=== PATIENT | female | born 1955 | race Caucasian/White ===

== ENCOUNTER → 2019-03-31 13:38 | Outpatient (CLI) | payer BC, SELFPAY ==
--- NOTE | ~2019-03-31 | XR_ITS ---
XR hand BI arthritis min 3V 03/31/2019 14:06 Indication: Arthritis of the hands Procedure: 4 views of each hand Comparison: No prior studies for comparison. Findings: There is mild bilateral osteoarthritis of the hands involving the first MCP and IP joints a s well as the interphalangeal joints. No fracture or traumatic malalignment. No focal soft tissue abn ormality. No radiopaque foreign bodies. Impression: 1: Mild polyarticular osteoarthritis. Reviewed, dictated and finalized at location A. 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
== END ==
PROVIDERS: PCP Nurse Practitioner; Visit Provider Nurse Practitioner
DX: M19.041 Primary osteoarthritis, right hand (principal); M19.042 Primary osteoarthritis, left hand
CPT/HCPCS: 73130

== ENCOUNTER 2019-06-09 10:00 | Outpatient (RCR) | payer BC, SELFPAY ==
--- NOTE | 2019-04-07 12:01 | OTOPEVAL ---
OCCUPATIONAL THERAPY INITIAL EVALUATION REPORT 04/07/2019 Thank you for referring this patient to [facility]. Skilled OT is indicated 2x/week for 4 weeks. Please review, sign, date and return this plan of care [place]. I agree with and certify that the following plan of care is medically necessary. Referring Physician Date Attending Provider: Nubia Ledesma NP *OT Outpatient Evaluation Start: 04/07/19 10:15 Therapy Assessment Status Assessment Status Evaluation Outpatient Past Medical History Musculoskeletal History Hx Arthritis Yes Hx Osteoporosis Yes Evaluation Information Problem Diagnosis Bilateral hand pain Additional Evaluation Detail Patient's symptoms are consistent with (L) ring finger and (R) thumb trigger fingers. Subjective Information Patient reports pain with (R) Query Text:As Reported By Patient/ thumb use during pinching Family tasks such as pulling up pants and starting her car. (L) ring finger pain with gross gripping tasks. Prior Level of Function Activity Level (Last 3 Months) Occupation Works at the [employer] Activity of Daily Living Ability Independent Cooking Yes Cleaning Yes Laundry Yes Shopping Yes Driving Yes Comments Additional Prior Level of Function Patient has been utilizing Comments compensatory techniques for ADLs and work tasks due to the pain. Pain Assessment Timing of Pain Assessment Timing of Pain Assessment Assessment Pain Scale Pain Scale Used Numeric (1 - 10) Self Report Pain Assessment Left Hand(s) Reported Pain Level 4 Pain Description Aching Current Pain Intensity 6 Lowest Pain Intensity 0 Greatest Pain Intensity 10 Pain Aggravating Factors ADL's Right Hand(s) Reported Pain Level 6 Pain Description Aching Radicular Pain Location IP of thumb to base of thumb toward wrist Current Pain Intensity 6 Lowest Pain Intensity 0 Greatest Pain Intensity 10 Pain Aggravating Factors ADL's Pain Score Pain Score 6,4: Self Report Upper Extremity Range of Motion General Upper Extremity Range of Motion Reason Not Measured WNL/Left,WNL/Right Upper Extremity Muscle Strength Testing General Upper Extremity Strength Reason Not Measured WNL/Lef
--- NOTE | 2019-05-05 11:31 | OTOPEVAL ---
OCCUPATIONAL THERAPY RE-EVALUATION REPORT 05/05/2019 Thank you for referring this patient to [facility]. As described below, Hemalatha is making progress toward pain-free function of bilateral hands. She will benefit from continued skilled OT 1x/week for 5 weeks. Please review, sign, date and return this plan of care [place]. I agree with and certify that the following plan of care is medically necessary. Referring Physician Date Admitting Provider: Attending Provider: Nubia Hayes NP Referring Provider: *OT Outpatient Re-Evaluation Problem Diagnosis Bilateral hand pain Additional Evaluation Detail Patient 's symptoms are consistent with (L) ring finger and (R) thumb trigger fingers. She has been wearing bilateral orthotics to immobilize flexor tendons to promote healing and reduced inflammation. She wears these orthotics as much as tolerated at this time. Subjective Information Hemalatha has been compliant with Query Text:As Reported By Patient/ all materials. She has been Family immobilizing the (L) ring finger and (R) thumb with orthotics. She has been incorporating work simplification techniques - ergonomic scissors, compensatory techniques for writing - and improved body mechanics to reduce repetitive strain on her hands. She has been intermittently taking ibuprofen (PRN), using ice for pain, and using heat prior to her HEP. Pain Assessment Timing of Pain Assessment Timing of Pain Assessment Assessment Pain Scale Pain Scale Used Numeric (1 - 10) Self Report Pain Assessment Left Hand(s) Reported Pain Level 0 Current Pain Intensity 0 Lowest Pain Intensity 0 Greatest Pain Intensity 8 Right Hand(s) Reported Pain Level 1 Current Pain Intensity 1 Lowest Pain Intensity 0 Greatest Pain Intensity 3 Pain Score Pain Score 0,1: Self Report Additional Pain Score Comments -Pt had one event of triggering on the (L) hand where she had sudden, sharp onset of pain. This event took <5 minutes to calm back down. -P
--- NOTE | 2019-05-19 11:30 | PCOTNOTE ---
Patient called and cancelled OT tx this morning.
--- NOTE | 2019-05-26 08:36 | PCOTNOTE ---
Patient called and cancelled next 2 OT tx due to COVID-19 pandemic.
--- NOTE | 2019-06-09 11:03 | OTOPEVAL ---
OCCUPATIONAL THERAPY RE-EVALUATION AND DISCHARGE REPORT 06/09/2019 Thank you for referring Hemalatha Rey to [facility]. As described below, patient is being discharged today and is independent with all home programs and splinting to continue to reduce pain and inflammation. Please review, sign, date and return this plan of care [place]. I agree with and certify that the following plan of care is medically necessary. Referring Physician Date Admitting Provider: Attending Provider: Nubia Hayes NP Referring Provider: *OT Outpatient Re-Eval and Discharge Evaluation Information Problem Diagnosis Bilateral hand pain Additional Evaluation Detail Patient 's symptoms are consistent with (L) ring finger and (R) thumb trigger fingers. She has been wearing bilateral orthotics to immobilize flexor tendons to promote healing and reduced inflammation. She wears these orthotics on at as needed basis, depending on the activity she is going to perform. Subjective Information Patient has not been to Query Text:As Reported By Patient/ therapy since her last re- Family evaluation due to COVID-19 social isolation precautions. She came in today to wrap up and is ready for discharge. She has made excellent progress with functional use of bilateral hands and is currently independent with all materials. Pain Assessment Timing of Pain Assessment Timing of Pain Assessment Re-assessment Pain Scale Pain Scale Used Numeric (1 - 10) Self Report Pain Assessment Left Hand(s) Reported Pain Level 0 Lowest Pain Intensity 0 Greatest Pain Intensity 5 Right Hand(s) Reported Pain Level 2 Lowest Pain Intensity 0 Greatest Pain Intensity 5 Pain Score Pain Score 0,2: Self Report Additional Pain Score Comments No triggering on the right thumb Pt only triggers on the left ring finger with a tight fist; she is able to make about 80% without triggering. Upper Extremity Range of Motion Finger Range of Motion Bilateral Reason Not Measured WFL/Left,WFL/Right Finger Range of Motion Comments Bilateral finger and thumb AROM is WFL. Hever
== END 2019-06-23 09:36 | disposition home or self-care (01) ==
LOC: ANHOT 10:00
PROVIDERS: PCP Nurse Practitioner; Visit Provider Nurse Practitioner
DX: M79.643 Pain in unspecified hand (principal)
CPT/HCPCS: 97018; 97035; 97110; 97140; 97166; 97530; 97760; 97763; L3906; L3933

== ENCOUNTER 2019-08-23 18:54 | Emergency (ER) | payer MEDICARE, SELFPAY ==
--- NOTE | ~2019-08-23 | XR_ITS ---
EXAMINATION: XR knee RT min 4V DATE: 08/23/2019 19:54 INDICATION: Right knee pain and swelling post injury TECHNIQUE: Anteroposterior, 2 oblique and crosstable lateral views of the right knee were obtained COMPARISON: None. FINDINGS: Alignment is normal. No fracture. Joint spaces appear normal. No joint effusion/layering lipohemarth rosis. Soft tissues are unremarkable. IMPRESSION: 1. Negative right knee radiographs. Reviewed, dictated and finalized at location A.
[2019-08-23 19:00] VITALS: BP 138/79; PULSE 74; RESP 18; TEMP 36.8; O2SAT 98
--- NOTE | 2019-08-23 19:21 | ED.LOWEXIN ---
HPI - Extremity Injury (Lower) General Chief Complaint: Extremity Injury, Lower Stated Complaint: right leg injury Time Seen by Provider: 08/23/19 19:07 Source: patient Mode of arrival: ambulatory Limitations: no limitations History of Present Illness HPI Narrative: This is a 64 year old female that presents to the ER for right knee injury 1 week ago. Reports she was out in the yard doing work and tripped and fell forward onto her right knee into a bed of rocks. Reports since she has had bruising and swelling going down the ellis. Denies fever, erythema, decreased ROM or numbness. Related Data Home Medications Medication Instructions Recorded Confirmed albuterol sulfate 90 mcg/actuation 2 puff INHALATION Q4-6H PRN gm 03/18/19 03/18/19 aerosol inhaler calcium carbonate 600 mg (1,500 1 cap PO DAILY cap 03/18/19 03/18/19 mg)-vitamin D3 500 unit capsule alendronate 70 mg PO WEEKLY 08/23/19 Allergies Allergy/AdvReac Type Severity Reaction Status Date / Time bupropion Allergy Unknown Other Verified 08/23/19 19:02 Review of Systems Review of Systems: Narrative: CONSTITUTIONAL: Denies fever MUSCULOSKELETAL: Reports joint pain, and myalgia. NEUROLOGIC: Denies numbness, or weakness. All systems reviewed & are unremarkable except as noted in HPI and below PMFSH Past Medical History Medical History (Updated 08/23/19 @ 20:34 by Nubia Camacho PA-C) Allergies Anxiety Cataract Chicken pox Depression H/O fracture History of measles, mumps, or rubella Hyperlipidemia Osteoporosis Vitamin deficiency Surgical History Surgical History (Updated 03/18/19 @ 06:30 by Cassandra Sahu [facility]) H/O section 1976, 1978 H/O tubal ligation 1980 History of tonsillectomy 1961 Family History Family History (Updated 03/17/19 @ 16:47 by Cassandra Sahu CMA) Sibling Hypertension Hyperlipidemia Small cell carcinoma Sudden cardiac Mother Brain tumor Social History Social History (Updated 03/18/19 @ 08:38 by Cassandra Sahu LICENSING REPRESENTATIVE) Smoking status: Former smoker Alcohol intake: current Drinks per week: 2 Exam Narrative: Exam Narrative: GENERAL: Well-appearing, well-nourished, and in no acute distress. HEAD: Normocephalic, atraumatic. EYES: EOMI. EXTREMITIES: Normal range of motion. Mild edema to the right lower leg with old-appearing bruising down the anterior ellis. Normal DP pulses. Normal sensation SKIN: Warm, dry, no rash. NEURO: No focal deficits. Alert and oriented x3. PSYCH: Normal mood and affect Course Vital Signs Vital signs: Vital Signs Temperature 98.3 F 08/23/19 19:00 Pulse Rate 74 08/23/19 19:00 Respiratory Rate 18 08/23/19 19:00 Blood Pressure 138/79 08/23/19 19:00 Pulse Oximetry 98 08/23/19 19:00 Temperature 98.3 F 08/23/19 19:00 Pulse Rate 74 08/23/19 19:00 Respiratory Rate 18 08/23/19 19:00 Blood Pressure 138/79 08/23/19 19:00 Pulse Oximetry 98 08/23/19 19:00 MDM - Extremity Injury (Lower) MDM Narrative Medical decision making narrative: Patient presents to the emergency department for lower an injury 1 week ago to the right knee. Right knee x-ray is without acute findings. Patient does have some mild swelling to the lower leg. She was concerned for possible blood clot. Patient set up for a venous Doppler tomorrow morning. Patient is stable and felt appropriate for further outpatient evaluation. She is to follow-up with her primary care doctor. She was given warnings to return to the ER Imaging Data Radiologist's impression: ITS Impressions Knee X-Ray 08/23/19 20:00 IMPRESSION: 1. Negative right knee radiographs. Critical Care Time Critical Care Time Critical Care Time: No Discharge Plan Discharge Clinical Impression: Acute pain of right knee, Edema of right lower extremity Patient Disposition: Home, Self-Care Condition: Stable Instructions: Leg Edema (ED), Knee Pain (ED)
[2019-08-23 21:03] VITALS: BP 132/70; PULSE 72; RESP 18; O2SAT 98
== END 2019-08-23 21:04 | disposition home or self-care (01) ==
PROVIDERS: Emergency Provider Emergency Medicine; PCP Internal Medicine
DX: M25.561 Pain in right knee (principal); R60.0 Localized edema; E78.5 Hyperlipidemia, unspecified; M81.0 Age-related osteoporosis without current pathological fracture; E56.9 Vitamin deficiency, unspecified; Z87.891 Personal history of nicotine dependence; H26.9 Unspecified cataract; W01.0XXA Fall on same level from slipping, tripping and stumbling without subsequent striking against object, initial encounter
CPT/HCPCS: 73564; 99283

== ENCOUNTER 2019-08-24 07:27 | Outpatient (CLI) | payer MEDICARE, SELFPAY ==
--- NOTE | ~2019-08-24 | US_ITS ---
EXAMINATION: US venous doppler LE RT DATE: 08/24/2019 08:05 INDICATION: Right lower limb swelling TECHNIQUE: Grayscale ultrasound images without and with compression and Doppler ultrasound images of the right lower extremity veins were obtained. COMPARISON: None. FINDINGS: The visualized portions of right common femoral vein, profunda (deep) femoral vein, femoral vein, pop liteal vein, peroneal trunk, posterior tibial veins, peroneal veins, gastrocnemius vein and greater s aphenous vein outflow are patent. IMPRESSION: 1. No deep venous thrombosis in the right lower limb. Reviewed, dictated and finalized at location A.
== END 2019-08-24 07:28 | disposition home or self-care (01) ==
PROVIDERS: PCP Internal Medicine; Visit Provider Internal Medicine
DX: R60.0 Localized edema (principal); M79.89 Other specified soft tissue disorders
CPT/HCPCS: 93971

== ENCOUNTER 2020-04-07 15:23 | Emergency (ER) | payer MEDICARE, SELFPAY ==
--- NOTE | ~2020-04-07 | XR_ITS ---
EXAMINATION: XR chest 2V EXAM DATE: 04/07/2020 15:48 INDICATION: Shortness of breath with exertion since yesterday. States after breathing mold. TECHNIQUE: Frontal and lateral projections of the chest obtained and reviewed. There is no prior clemencia dy for comparison. FINDINGS: Left lower lobe superior segmental granuloma. The lungs are otherwise clear. There are no pleural effusions. The cardiomediastinal silhouette is within normal limits. There is no pneumotho rax suspected. Mild to moderate chronic hyperinflation. There are mild bony degenerative changes. IMPRESSION: No acute cardiopulmonary findings. Reviewed, dictated and finalized at location B. 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
[2020-04-07 15:27] VITALS: BP 135/84; PULSE 76; RESP 20; TEMP 37.1; O2SAT 96
--- NOTE | 2020-04-07 15:34 | ECG_ITS ---
Measurements Intervals [place] Rate: 71 P: 53 KS: 174 QRS: 26 QRSD: 95 T: 51 QT: 397 QTc: 432 Interpretive Statements SINUS RHYTHM LOW QRS VOLTAGE IN PRECORDIAL LEADS BASELINE ARTIFACT- I, II, AVR, AVF, V4-V6 BORDERLINE ECG Electronically Signed On 04-07-2020 15:44:33 TACO MAKER by Gerardo Martinez D.O.
[2020-04-07 15:43] LABS: Basophils Absolute Auto 0.1 K/mm3 (0.0-0.1); Basophils Percent Auto 0.5 % (0.2-1.2); Eosinophils Absolute Auto 0.2 K/mm3 (0-0.3); Hematocrit 40.3 % (37.0-47.0); Hemoglobin 12.9 g/dL (12.0-15.0); Immature Granulocyte Absolute 0.03 K/mm3 (0.00-0.031); Immature Granulocyte Percent A 0.3 % (0-0.5); Lymphocytes Absolute Auto 1.67 K/mm3 (0.9-3.2); Lymphocytes Percent Auto 15.7 % (18.3-44.2); Mean Corpuscular Hemoglobin 28.1 pg (26-34); Mean Corpuscular Volume 87.8 fl (80-100); Mean Platelet Volume 9.3 fl (7.4-10.4); Monocytes Absolute Auto 0.7 K/mm3 (0.1-0.6); Monocytes Percent Auto 6.3 % (2.6-8.5); Neutrophils Percent Auto 75.2 % (45.5-73.1); Platelet Count Result 372 k/mm3 (150-375); Red Blood Count 4.59 M/mm3 (4.2-5.4); Red Cell Distribution Width 14.2 % (11.5-14.5); White Blood Count 10.7 K/mm3 (4.5-10.0)
--- NOTE | 2020-04-07 16:13 | PC.NURSE ---
Called lab to add on pt inr ptt and d dimer @ [phone]
--- NOTE | 2020-04-07 16:21 | ED.GENADULT ---
HPI - General Adult General Chief complaint: Shortness of Breath/Dyspnea Stated complaint: sob Time Seen by Provider: 04/07/20 15:49 Source: patient and EMS Mode of arrival: EMS Limitations: no limitations History of Present Illness HPI narrative: Patient is a 64-year-old female who presents with shortness of breath that began yesterday after exposure to mold with similar occurrence in the past used her inhaler a few times but notes she continued to feel short of breath so contacted 911 came for EMS for evaluation patient notes she was given some oxygen in route which made her feel better. Patient denies URI symptoms or other complaints and on arrival is resting comfortably denying any pain noting that her symptoms are much better patient notes she has had similar occurrences in the past when exposed to allergens. Related Data Home Medications Medication Instructions Recorded Confirmed albuterol sulfate 90 mcg/actuation 2 puff INHALATION Q4-6H PRN gm 03/18/19 03/18/19 aerosol inhaler calcium carbonate 600 mg (1,500 1 cap PO DAILY cap 03/18/19 03/18/19 mg)-vitamin D3 500 unit capsule Allergies Allergy/AdvReac Type Severity Reaction Status Date / Time bupropion Allergy Unknown Panic Verified 04/07/20 14:10 Attacks Review of Systems Review of Systems: All systems reviewed & are unremarkable except as noted in HPI and below PMFSH Past Medical History Medical History Allergies Anxiety Cataract Chicken pox Depression H/O fracture History of measles, mumps, or rubella Hyperlipidemia Osteoporosis Vitamin deficiency Surgical History Surgical History H/O section 1978 H/O tubal ligation 1980 History of tonsillectomy 1961 Family History Family History (Updated 03/17/19 @ 16:47 by Cassandra Christiansen, [facility]) Sibling Hypertension Hyperlipidemia Small cell carcinoma Sudden cardiac Mother Brain tumor Social History Social History Smoking status: Former smoker Alcohol intake: current Drinks per week: 2 Exam Narrative: Exam Narrative: GENERAL: Well-appearing, well-nourished, and in no acute distress. HEAD: Normocephalic, atraumatic. EYES: PERRLA and EOMI. ENT: Nares clear, no rhinorrhea or epistaxis. Mucous membranes moist. NECK: Supple. No adenopathy or masses. CHEST: Clear to auscultation. No respiratory distress. No wheezes rales or rhonchi HEART: Regular rate and rhythm. No murmur heard. EXTREMITIES: Normal range of motion. No edema. SKIN: Warm, dry, no rash. NEURO: No focal deficits. Alert and oriented x3. PSYCH: Normal mood and affect. Course Course Emergency Course: Patient presented with dyspnea which she believed to be related to mold exposure patient was evaluated without any high risk changes in the blood work or imaging patient will be discharged home at this time provided with medications to take for her symptoms patient feeling much better at this time ABCs and vital signs intact and stable patient agreeing to follow-up as instructed and is also been given reasons to return patient agrees with this plan Vital Signs Vital signs: Vital Signs Temperature 98.7 F 04/07/20 15:27 Pulse Rate 76 04/07/20 15:27 Respiratory Rate 20 04/07/20 15:27 Blood Pressure 135/84 04/07/20 15:27 Pulse Oximetry 96 04/07/20 15:27 Temperature 98.7 F 04/07/20 15:27 Pulse Rate 75 04/07/20 16:36 Respiratory Rate 18 04/07/20 16:36 Blood Pressure 135/84 04/07/20 15:27 Pulse Oximetry 96 04/07/20 15:27 Medical Decision Making MDM Narrative Medical decision making narrative: Patient evaluated for dyspnea no high risk changes in the blood work or imaging will be discharged home normal vital signs hemodynamically stable given an MDI was also given an updraft in the
[2020-04-07 16:23] VITALS: PULSE 76; RESP 18
[2020-04-07] MEDS: IPRATROPIUM BR 0.02% INH SOLN 0.5 MG/2.5 ML VIAL INHALATION (16:23)
[2020-04-07] MEDS: ALBUTEROL SULFATE NEB 2.5 MG/0.5 ML INH 5 MG INHALATION (16:23)
[2020-04-07 16:36] VITALS: PULSE 75; RESP 18
[2020-04-07 16:37] LABS: Anion Gap 5 mmol/L (8-16); Blood Urea Nitrogen 18 mg/dL (7-17); Calcium 8.6 mg/dL (8.4-10.2); Carbon Dioxide 31 mmol/L (22-30); Chloride 103 mmol/L (98-107); Estimated CRCL calculation 82 ml/min; Estimated Glomerular Filt Rate > 60; Glucose 96 mg/dL (65-105); Potassium 4.5 mmol/L (3.4-5.0); Sodium 139 mmol/L (137-145)
[2020-04-07 16:48] LABS: Troponin I < 0.012 ng/mL (0.000-0.034)
[2020-04-07 17:12] LABS: INR 0.9; Prothrombin Time 12.7 Seconds (11.1-14.7)
[2020-04-07 17:14] LABS: Partial Thromboplastin Time 29.2 SECONDS (22.3-36.8)
[2020-04-07 17:20] LABS: D Dimer 0.45 ug/mL (<0.48)
[2020-04-07 18:40] VITALS: BP 140/70; PULSE 70; RESP 18; O2SAT 99
== END 2020-04-07 18:42 | disposition home or self-care (01) ==
PROVIDERS: Emergency Medicine Emergency Medical Services; Emergency Provider Emergency Medicine; PCP Internal Medicine
DX: R06.00 Dyspnea, unspecified (principal); E78.5 Hyperlipidemia, unspecified; M81.0 Age-related osteoporosis without current pathological fracture; E56.9 Vitamin deficiency, unspecified; Z87.891 Personal history of nicotine dependence; H26.9 Unspecified cataract; R94.31 Abnormal electrocardiogram [ECG] [EKG]
CPT/HCPCS: 36415; 71046; 80048; 84484; 85025; 85380; 85610; 85730; 93005; 94640; 99284

== ENCOUNTER 2020-05-11 08:59 | Outpatient (CLI) | payer MEDICARE, SELFPAY ==
--- NOTE | 2020-05-11 12:45 | P.PCNPFT_ITS ---
PFT Interpretation This is a pulmonary function test with pre and post-bronchodilator spirometry, plethysmography and diffusing capacity. The test was performed and results interpreted in accordance with the 2019 and 2005 ATS/ERS Task Force guidelines respectively using the Global Lung Function Initiative-2012 reference equations. Patient demonstrated good effort and c ooperation. Reproducibility criteria were met. The quality of the pre bronchodilator spirometry maneuver was Grade A and post bronchodilator spirometry maneuver was Grade A. Findings: Spirometry: there is decreased maximal expiratory airflow at all lung volumes with concave expiratory flow tracing. The inspiratory flow tracing is normal. The pre bronchodilator FVC is 1.46 L, 53% predicted. The pre bronchodilator FEV1 is 0.88 L, 40% predicted. The FEV1: FVC ratio is 60%. The post bronchodilator FVC is 1.89 L, representing a 29% increase. The post bronchodilator FEV1 is 1.05 L, represented 20% increase. Plethysmography: The total lung capacity is 4.97, 105% predicted. Functional residual capacity is 3.36 L, 126% predicted. The residual volume is 3.23 L, 163% predicted. Diffusing capacity: The absolute diffusion capacity is 17.7, 87% predicted. Diffusion capacity corrected for alveolar volume is 5.07, 114% predicted. Impression: There is a severe obstructive abnormality with significant improvement after inhaling a single dose of albuterol. The increase in residual volume is consistent with air trapping from an obstructive abnormality. The diffusing capacity is normal. There are no prior studies for comparison
== END 2020-05-11 09:00 | disposition home or self-care (01) ==
PROVIDERS: PCP Internal Medicine; Visit Provider Nurse Practitioner
DX: R06.02 Shortness of breath (principal); R94.2 Abnormal results of pulmonary function studies
CPT/HCPCS: 94060; 94726; 94729

== ENCOUNTER 2020-08-03 08:00 | Outpatient (CLI) | payer MEDICARE, SELFPAY ==
--- NOTE | 2020-08-19 18:21 | WPDHOMESLEEP ---
Sleep Study - Home Unattended Date of Study: 08/03/20 Ordering Provider: Corrie Hudson NP Interpreting Provider: Jessy Saab MD Home Sleep Study Type: Watch ABI Height: 1.59 m Weight: 81.647 kg Body Mass Index: 32.3 Neck Circumference (inches): 14.25 Hawkins: 4 Reason for Sleep Study Loud snoring, possible sleep apnea Sleep History Hemalatha Rey is a 65 year old female who says that she has always been a loud sleeper. This is been going on since she was a teenager. Her family thinks that she has become louder with H and there is a concern about sleep apnea. She is not bothered as much by this as her family members are. There is a family history of sleep apnea with her sister using CPAP. She does not awaken from sleep feeling short of breath. She does not awaken at night with heartburn, belching or coughing. She frequently snores and has frequent loud enough the others complain about it. She constantly has trouble sleep with a cold. She rarely wakes up gasping for breath at night. She occasionally sweats excessively at night. She does not notice her heart pounding or beating irregularly at night. She does not fall asleep during the day, does not fall asleep involuntarily and does not fall asleep while driving. She does not have loss of muscle tone was strong emotion. She does not have difficulties during the daytime due to excessive sleepiness. 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 She does not feel paralyzed on waking or falling asleep. She frequently has vivid dreamlike scenes upon awakening or falling asleep. Only rarely does she feel afraid to go to sleep. she occasionally has nightmares, occasionally remembers her dreams and occasionally has racing thoughts. She rarely feels sad, depressed and occasionally feels anxious. She does not have muscular tension. She does not notice parts of her body jerking. She rarely kicks at night. She does not have crawling and aching feelings in her legs. She rarely has any kind of leg pain at night. She does not have morning jaw pain. She occasionally grinds her teeth during sleep. She is not bothered by pain during the day and is not awakened by pain at night. She occasionally wakes up feeling stiff in the morning. She rarely wakes up with sore or achy muscles and rarely wakes up with pain in the neck and spine. She goes to bed between 10:00 p.m. and 11:00 p.m. and is not certain how long it takes her to fall asleep. Sometimes she wakes up 1 or 2 times and sometimes she does not wake up at all. When she does wake at night, she may need to use the bathroom. Hearing the dog bark may cause her to wake, or feeling too hot or cold. She is able to return to sleep in 3 minutes. Her wake up time is 7-8 am. Her schedule is the same on weekends. She estimates getting 8-9 hours of sleep at night. She does not take naps in the day. She is not refreshed after a short nap. She feels good most mornings. Habits: she quit smoking 10 years ago. Caffeine is 2 or 3 servings a day. Alcohol is 2 or 3 servings per week. No recreational drugs. [facility] Past Medical History Medical History (Updated 08/19/20 @ 20:50 by Jessy Saab MD) Allergies Anxiety Asthma-COPD overlap syndrome Cataract Chicken pox Depression H/O fracture History of measles, mumps, or rubella Hyperlipidemia Osteoporosis Vitamin deficiency Surgical History Surgical History H/O section 1978 H/O tubal ligation 1980 History of tonsillectomy 1961 Family History Family History (Updated 03/17/19 @ 16:47 by Cassandra Christiansen [facility]) Sibling Hypertension Hyperlipidemia Small cell carcinoma Sudden cardiac Mother Brain tumor Social History Social History Smoking status: Former smoker Alcohol intake: current Drinks per week: 2 Medications Home Medications Medication In
[2020-08-19 20:54] VITALS: BMI 32.3
== END 2020-08-04 14:21 | disposition home or self-care (01) ==
LOC: ANHCSM 08:01
PROVIDERS: PCP Internal Medicine; Visit Provider Nurse Practitioner
DX: G47.33 Obstructive sleep apnea (adult) (pediatric) (principal)
CPT/HCPCS: 95800

== ENCOUNTER 2020-09-07 08:12 | Outpatient (CLI) | payer MEDICARE, SELFPAY ==
--- NOTE | 2020-09-09 13:46 | WPDSLEEPSTUD ---
Sleep Study Date of Study: 09/07/20 Ordering Provider: Corrie Hudson NP Interpreting Physician: Jessy Saab MD Sleep Study Type: CPAP Titration Height: 1.59 m Weight: 79.379 kg Body Mass Index: 31.5 Neck Circumference (inches): 14 [place]: 5 Reason for Sleep Study Home sleep test using [employer] August 03, 2020 with severe obstructive sleep apnea, AHI 36.6, lowest desaturation 54%, 141.2 minutes spent below 88% and loud snoring. Central AHI is 12.1.. She presented for CPAP titration. Sleep History June Candido is a 65 year old female who says that she has always been a loud sleeper. This is been going on since she was a teenager. Her family thinks that she has become louder with H and there is a concern about sleep apnea. She is not bothered as much by this as her family members are. There is a family history of sleep apnea with her sister using CPAP. She does not awaken from sleep feeling short of breath. She does not awaken at night with heartburn, belching or coughing. She frequently snores and has frequent loud enough the others complain about it. She constantly has trouble sleep with a cold. She rarely wakes up gasping for breath at night. She occasionally sweats excessively at night. She does not notice her heart pounding or beating irregularly at night. She does not fall asleep during the day, does not fall asleep involuntarily and does not fall asleep while driving. She does not have loss of muscle tone was strong emotion. She does not have difficulties during the daytime due to excessive sleepiness. 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 She does not feel paralyzed on waking or falling asleep. She frequently has vivid dreamlike scenes upon awakening or falling asleep. Only rarely does she feel afraid to go to sleep. she occasionally has nightmares, occasionally remembers her dreams and occasionally has racing thoughts. She rarely feels sad, depressed and occasionally feels anxious. She does not have muscular tension. She does not notice parts of her body jerking. She rarely kicks at night. She does not have crawling and aching feelings in her legs. She rarely has any kind of leg pain at night. She does not have morning jaw pain. She occasionally grinds her teeth during sleep. She is not bothered by pain during the day and is not awakened by pain at night. She occasionally wakes up feeling stiff in the morning. She rarely wakes up with sore or achy muscles and rarely wakes up with pain in the neck and spine. She goes to bed between 10:00 p.m. and 11:00 p.m. and is not certain how long it takes her to fall asleep. Sometimes she wakes up 1 or 2 times and sometimes she does not wake up at all. When she does wake at night, she may need to use the bathroom. Hearing the dog bark may cause her to wake, or feeling too hot or cold. She is able to return to sleep in 3 minutes. Her wake up time is 7-8 am. Her schedule is the same on weekends. She estimates getting 8-9 hours of sleep at night. She does not take naps in the day. She is not refreshed after a short nap. She feels good most mornings. Habits: she quit smoking 10 years ago. Caffeine is 2 or 3 servings a day. Alcohol is 2 or 3 servings per week. No recreational drugs. [facility] Past Medical History Medical History Allergies Anxiety Asthma-COPD overlap syndrome Cataract Chicken pox Depression H/O fracture History of measles, mumps, or rubella Hyperlipidemia Osteoporosis Vitamin deficiency Surgical History Surgical History H/O section 1978 H/O tubal ligation BL 1980 History of tonsillectomy 1961 Family History Family History Sibling Hypertension Hyperlipidemia Small cell carcinoma Sudden cardiac Mother Brain tumor Social History Social History (Reviewed 09/09/20 @ 13:47 b
[2020-09-09 14:03] VITALS: BMI 31.5
== END 2020-09-09 19:06 | disposition home or self-care (01) ==
LOC: ANHCSM 08:13
PROVIDERS: PCP Internal Medicine; Visit Provider Nurse Practitioner
DX: G47.33 Obstructive sleep apnea (adult) (pediatric) (principal)
CPT/HCPCS: 95811

== ENCOUNTER 2020-10-13 10:32 | Outpatient (CLI) | payer MEDICARE, SELFPAY ==
[2020-10-13 13:20] LABS: Basophils Percent Auto 0.6 % (0.2-1.2); Eosinophils Absolute Auto 0.1 K/mm3 (0-0.3); Eosinophils Percent Auto 2.1 % (0-4.4); Hematocrit 44.2 % (37.0-47.0); Hemoglobin 13.6 g/dL (12.0-15.0); Immature Granulocyte Absolute 0.02 K/mm3 (0.00-0.031); Immature Granulocyte Percent A 0.3 % (0-0.5); Lymphocytes Absolute Auto 1.78 K/mm3 (0.9-3.2); Lymphocytes Percent Auto 26.3 % (18.3-44.2); Mean Corpuscular HGB Conc 30.8 g/dl (32-36); Mean Corpuscular Hemoglobin 27.9 pg (26-34); Mean Corpuscular Volume 90.6 fl (80-100); Mean Platelet Volume 9.5 fl (7.4-10.4); Monocytes Absolute Auto 0.5 K/mm3 (0.1-0.6); Monocytes Percent Auto 6.6 % (2.6-8.5); Neutrophils Absolute Auto 4.3 K/mm3 (1.3-6.7); Neutrophils Percent Auto 64.1 % (45.5-73.1); Platelet Count Result 401 k/mm3 (150-375); Red Blood Count 4.88 M/mm3 (4.2-5.4); Red Cell Distribution Width 14.3 % (11.5-14.5); White Blood Count 6.8 K/mm3 (4.5-10.0)
[2020-10-13 13:30] LABS: Alanine Aminotransferase 17 U/L (4-35); Albumin Level 4.4 g/dL (3.5-5.1); Alkaline Phosphatase 64 U/L (38-126); Anion Gap 8 mmol/L (8-16); Aspartate Amino Transferase 25 U/L (14-36); Bilirubin,Total 0.4 mg/dL (0.2-1.3); Blood Urea Nitrogen 13 mg/dL (7-17); Calcium 9.5 mg/dL (8.4-10.2); Carbon Dioxide 29 mmol/L (22-30); Chloride 102 mmol/L (98-107); Cholesterol 247 mg/dL (0-200); Estimated Glomerular Filt Rate > 60; Glucose 89 mg/dL (65-110); HDL Direct 53 mg/dL; Potassium 4.7 mmol/L (3.4-5.0); Sodium 139 mmol/L (137-145); Triglycerides 140 mg/dL (<150)
[2020-10-13 13:42] LABS: LDL Cholesterol Direct 136 mg/dL
[2020-10-13 15:30] LABS: Vitamin D 25 Hydroxy 37.9 ng/mL
== END 2020-10-13 10:33 | disposition home or self-care (01) ==
LOC: ANHLAB 10:37
PROVIDERS: PCP Internal Medicine; Visit Provider Nurse Practitioner
DX: Z13.228 Encounter for screening for other metabolic disorders (principal); E55.9 Vitamin D deficiency, unspecified; E78.5 Hyperlipidemia, unspecified
CPT/HCPCS: 36415; 80053; 80061; 82306; 85025

== ENCOUNTER 2021-01-20 13:51 | Outpatient (CLI) | payer MEDICARE, SELFPAY ==
--- NOTE | ~2021-01-20 | DEXA_ITS ---
Bone Density Report Name: Hemalatha Rey Age: 65 Sex: Female Ethnicity: White Date of : 1955 Indication: osteopenia; monitoring treatment; parental hip fracture; asthma or emphysema; postmenopausal Referring Provider: Nubia Hayes Study: Bone densitometry was performed. Exam Date: January 20, 2021 Accession number: [id number] Bone Density: Region BMD T-score Z-score Classification AP Spine (L1, L2, L3) 0.782 -2.1 -0.3 Osteopenia Femoral Neck (Left) 0.648 -1.8 -0.2 Osteopenia Total Hip (Left) 0.756 -1.5 -0.2 Osteopenia Total Hip Bilateral Avg 0.764 -1.5 -0.2 Osteopenia Femoral Neck (Right) 0.623 -2.0 -0.4 Osteopenia Total Hip (Right) 0.771 -1.4 -0.1 Osteopenia World Health Organization criteria for BMD impression classify patients as: Normal (T-score at or above -1.0), Osteopenia (T-score between -1.0 and -2.5), or Osteoporosis (T-score at or below -2.5). 10-year Fracture Risk: FRAX not reported because: Treated for osteoporosis Previous Exams: Region Exam Age BMD T-score BMD Change BMD Change Date g/cm2 vs Baseline vs Previous AP Spine(L1, L2, L3) 01/20/2021 65 0.782 -2.1 0.016(2.1%) -0.033(-4.0%)* 12/24/2018 63 0.815 -1.8 0.049(6.4%)* 0.049(6.4%)* 12/05/2016 61 0.766 -2.3 Total Hip(Left) 01/20/2021 65 0.756 -1.5 -0.043(-5.3%)* -0.068(-8.3%)* 12/24/2018 63 0.824 -1.0 0.026(3.2%) 0.026(3.2%) 12/05/2016 61 0.799 -1.2 Total Hip(Right) 01/20/2021 65 0.771 -1.4 -0.051(-6.2%)* -0.074(-8.7%)* 12/24/2018 63 0.845 -0.8 0.023(2.8%) 0.023(2.8%) 12/05/2016 61 0.822 -1.0 *Denotes significance at 95% confidence level, LSC for AP Spine = 0.022 g/cm2, LSC for Total Hip = 0.027 g/cm2 Clinical Information Provided by Patient: Parent has had a hip fracture Is being treated for osteoporosis Has used the following medications: Fosamax (i.e. alendronate), Vitamin D, Calcium Has the following medical conditions: Asthma or Emphysema Patient maximum height was 62.5 Menopause Age: 45 Drinks caffeinated beverages Onset of menses at age 11 Number of children 2 Impression: The patient has low bone mass, based on the Total Spine T-score. The patient has risk factors, including: parental hip fracture. The BMD for the AP Spine(L1, L2, L3) decreased, changing by -4.0% since the last DXA exam. The BMD for the Total Hip(Left) decreased, changing by -8.3% since the last DXA exam. The BMD for the Total Hip(Right) decrease
--- NOTE | ~2021-01-20 | MM_ITS ---
EXAMINATION: MM screening larissa BI w luis HISTORY: Screening mammogram, family history of breast cancer in her mother. TECHNIQUE: Craniocaudal and mediolateral oblique 3-D tomosynthesis images were obtained and synthetic 2-D images were generated. CAD analysis was submitted and interpreted. COMPARISON: 12/24/2018, 12/05/2016 BREAST PARENCHYMAL COMPOSITION: The breasts are almost entirely fatty. FINDINGS: There is no evidence of suspicious mass, calcification, or architectural distortion to sugg est malignancy in either breast. There has been no suspicious interval change. IMPRESSION: 1. No mammographic evidence of malignancy. 2. Recommend routine screening mammography in one year. BI-RADS Category 1: Negative Reviewed, dictated and finalized at location A. MIXER
== END 2021-01-20 13:52 | disposition home or self-care (01) ==
LOC: ANHIMG 13:51
PROVIDERS: PCP Internal Medicine; Visit Provider Nurse Practitioner
DX: Z12.31 Encounter for screening mammogram for malignant neoplasm of breast (principal); M81.0 Age-related osteoporosis without current pathological fracture; M85.88 Other specified disorders of bone density and structure, other site; M85.852 Other specified disorders of bone density and structure, left thigh; M85.851 Other specified disorders of bone density and structure, right thigh
CPT/HCPCS: 77063; 77067; 77080

== ENCOUNTER 2021-09-07 16:05 | Outpatient (CLI) | payer MEDICARE, SELFPAY ==
--- NOTE | ~2021-09-07 | XR_ITS ---
XR shoulder RT min 2V 09/07/2021 16:49 Indication: Right shoulder pain Procedure: 5 views right shoulder Comparison: No prior studies for comparison. Findings: There is mild-moderate polyarticular osteoarthritis of the right shoulder. No fracture or t raumatic malalignment. No significant soft tissue abnormality. No foreign body. Impression: 1: Mild-moderate polyarticular osteoarthritis of the right shoulder. Reviewed, dictated and finalized at location A. Impression: 1: Mild-moderate polyarticular osteoarthritis of the right shoulder.
--- NOTE | ~2021-09-07 | XR_ITS ---
XR_CERV2-3V_CR DATE: 09/07/2021 16:49 INDICATION: Right neck pain for 2 weeks. Skin anesthesia. TECHNIQUE: AP, open-mouth, lateral, swimmer views COMPARISON: None FINDINGS: Osteopenia. C1 and C2 are normally aligned and the odontoid process is intact. No fracture or dislocation or lock ed facet or prevertebral soft tissue swelling. There is mild anterolisthesis at C5-6. There is degenerative change at the apophyseal joints in the mid and lower cervical spine. IMPRESSION: Mild anterolisthesis at C5-6 due to degenerative change at the proximal joints No fracture or dislocation or locked facet Osteopenia Reviewed, dictated and finalized at Location [facility]. Reviewed, dictated and finalized at location A. IMPRESSION: Mild anterolisthesis at C5-6 due to degenerative change at the prox imal joints No fracture or dislocation or locked facet Osteopenia
== END 2021-09-07 16:06 | disposition home or self-care (01) ==
PROVIDERS: PCP Internal Medicine; Visit Provider Nurse Practitioner
DX: R20.0 Anesthesia of skin (principal); R20.2 Paresthesia of skin; M85.88 Other specified disorders of bone density and structure, other site; M50.322 Other cervical disc degeneration at C5-C6 level; M19.011 Primary osteoarthritis, right shoulder
CPT/HCPCS: 72040; 73030

== ENCOUNTER → 2021-10-30 15:53 | Outpatient (CLI) | payer MEDICARE, SELFPAY ==
--- NOTE | ~2021-10-30 | XR_ITS ---
XR knee RT 3V DATE: 10/30/2021 16:11 INDICATION: Right knee injury, pain TECHNIQUE: AP, lateral and sunrise views COMPARISON: None FINDINGS: There is osteopenia. No fracture or dislocation or joint effusion. No periosteal reaction o r bone destruction, radiopaque intra-articular loose body or chondrocalcinosis. Mild tricompartment osteoarthritis, most prominent at the medial compartment. IMPRESSION: Osteopenia Tricompartment mild to moderate osteoarthritis Reviewed, dictated and finalized at location B.
== END ==
PROVIDERS: PCP Clinical Nurse Specialist; Visit Provider Clinical Nurse Specialist
DX: S89.90XA Unspecified injury of unspecified lower leg, initial encounter (principal); X58.XXXA Exposure to other specified factors, initial encounter; M85.861 Other specified disorders of bone density and structure, right lower leg; M17.11 Unilateral primary osteoarthritis, right knee
CPT/HCPCS: 73562

== ENCOUNTER 2021-11-08 12:30 | Outpatient (RCR) | payer MEDICARE, SELFPAY ==
--- NOTE | 2021-10-04 16:08 | PTOPEVAL ---
PHYSICAL THERAPY EVALUATION AND PLAN OF CARE Thank you for referring Hemalatha Rey to [facility].? The patient is scheduled to be seen for therapy? 1x/week for 5 weeks. Please review, sign, date and return this plan of care [place]. I agree with and certify that the following plan of care is medically necessary. Referring Physician Date Attending Provider: Nubia Hayes NP Diagnosis right shoulder pain Onset chronic, on going Subjective Information Reports she hsa intermittent Query Text:As Reported By Patient/ injury of right shoulder and Family it is now more persistent and is now waking her at night. She enjoys gardening and wood working. She does not want to be limited in these activities and does not want pain. 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 She reports that when she wakes in the night she has numbness that goes through her whole hand. Right Shoulder(s) Reported Pain Level 4 Pain Description Aching Cervical ROM Cervical Flexion (0-60) 60 Query Text:Active in Degrees Cervical Extension (0-70) 60 Query Text:Active in Degrees Cervical Rotation Right (0-90) 72 Query Text:Active in Degrees Cervical Rotation Left (0-90) 80 Query Text:Active in Degrees Upper Extremity Range of Motion General Upper Extremity Range of Motion Reason Not Measured WFL/Left,WFL/Right Gross Upper Extremity Range of Motion pain at end range of right Comments shoulder; shoulder internal rotation reaches T12 Upper Extremity Muscle Strength Testing Scapular/Shoulder Left Shoulder Flexion Strength 5 Normal Shoulder Abduction Strength 5 Normal Shoulder Medial Rotation Strength 5 Normal Shoulder Lateral Rotation Strength 5 Normal Right Shoulder Flexion Strength 3 Fair Shoulder Abduction Strength 3 Fair Shoulder Medial Rotation Strength 4 Good Shoulder Lateral Rotation Strength 4- Good - Posture Posture Sitting Position Head/C-Spine Posture Forward Head Lumbar Spine Posture Flattened Shoulder Posture (R) Rounded,(R) Forward Palpation significant muscle tension and spasm noted to bilateral upper trapezius and rhomboids; underdeveloped infraspinatus and lower trapezius; severe hypomobility of thoracic spin
--- NOTE | 2021-11-08 13:32 | PTOPDC ---
Evaluation Information Assessment Status Discharge Diagnosis R knee pain; R shoulder pain Subjective Information June reports: shoulder was doing better, then she hurt her knee and stopped doing her exercises; then when returned to doing the shoulder exercises, overdid it and shoulder hurting again; feels like her shoulder is good and OK to finish PT for it; KNEE--pain in knee, start about Oct 25, with cleaning home and doing more; it is better now; did have problems walking and had to call off work; saw , had xray and was told arthritis and Haro's cyst; been using ice and elevation, rest; use a knee brace when walking distances; have a referral to ortho dr--appt Dec 04; stairs are problem- only do one step at time; Feels like she is ready for discharge from PT and to continue with her exercises at home; Reported Pain Level Pain Score 2,0: Self Report Additional Pain Score Comments have changed the position she sleeps in and it has helped-- now lie on L side with pillow under R elbow; is able to sleep through the night without awakening; exercises have helped her move her shoulder better; have been carrying my bag on my L shoulder and watching posture; Assessment PT Clinical Summary June has received 6 PT sessions for R shoulder pain. She presents today with new orders for her R knee pain. Today's session was reeval/d-c for the shoulder and eval/d-c for R knee. Her knee pain is less than it was initially and she has a referral to an orthopedic dr. She has pain at end ranges of knee flexion and extension, with weakness over knee. She was issued a home exercise program for knee strengthening. And educated on self care of pain management. Compared to the initial eval for her R shoulder, pain rating is less at the low rating; sleeping has improved, is no longer awakening from pain; strength and posture have improved and she is indep with her home exercises; the goals were partially achieved. Discharge PT services; she is to continue with the R shoulder exercises, monitoring her posture and continue with R knee strengthening exercises. Plan of Care PT Services Indicated No
== END 2021-12-18 09:25 | disposition home or self-care (01) ==
LOC: ANHPT 12:30
PROVIDERS: PCP Internal Medicine; Visit Provider Nurse Practitioner
DX: M25.511 Pain in right shoulder (principal)
CPT/HCPCS: 97014; 97110; 97112; 97140; 97161; G0283

== ENCOUNTER 2022-01-04 08:52 | Outpatient (RCR) | payer MEDICARE, SELFPAY ==
--- NOTE | 2022-01-04 10:13 | PTOPEVAL1 ---
Assessment and note entered by Dominique Randle, PT Evaluation Information Assessment Status Evaluation Diagnosis R knee pain/OA Onset October 2021 Subjective Information gradual increase in pain, no trauma or injury to knee; had injection- helped with swelling, pain about the same; is wearing a brace when working; told her eventually will need a knee replacement; is not walking as much due to pain in knees; Reported Pain Level Pain Score Self Report Additional Pain Score Comments pain range of R knee 0-7/10; ache in lateral knee, dull, sometimes sharp and into lateral calf; increase with walking/ standing about 1 hour, mornings sometimes worse pain; decrease pain with elevate, ice and over the counter meds, bend/ straighten knee, knee brace; generally sleep not bothered with knee educated on use of knee brace PRN use for distance and increase pain, NOT all time; on stairs have to do single step due to increase pain Assessment PT Clinical Summary June has the diagnosis of R knee pain/ OA. 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 And is able to do everything but decreased tolerance with walking, stairs and standing due to knee pain. She does regular fitness exercises for her arms and legs and walks. With the evaluation, she has good flexibility of hips and knees; good strength, but slight weakness with hip extension and adduction. Education completed for home exercises and knee care. She is very motivated and has a good understanding of knee care, pain management and HEP. She will do the exercises on her own and will call with any additional questions or to make an appointment if she needs additional therapy. Her plan of care is established for 0-2x/wk. Plan of Care Interventions Electrical Stimulation,Hot Pack/Cold Pack,Manual Therapy,Neuro Re-education,Patient/Caregiver Education,Therapeutic Activities,Therapeutic Exercise,Ultrasound PT Services Indicated Yes Treatment Frequency and 0-2x/wk for 4 weeks Duration These treatments will address the objective and functional deficits as defined above. The patient will be advanced safely and appropriately in order for the
--- NOTE | 2022-01-31 10:51 | PCPTNOTE ---
PHYSICAL THERAPY DISCHARGE 01-31-22 Attending Provider: Wilson Quiroga MD Patient:Hemalatha Rey Date of :1955 Hemalatha has not returned for any further treatments since the initial PT evaluation on 01/04/2022, for the diagnosis of R knee pain; Therefore she will be discharged at this time. The goals were not addressed. Thank you for referring this patient to [facility].
== END 2022-01-31 11:34 | disposition home or self-care (01) ==
LOC: ANHPT 08:52
PROVIDERS: PCP Clinical Nurse Specialist; Visit Provider Orthopaedic Surgery
DX: M17.11 Unilateral primary osteoarthritis, right knee (principal); M25.561 Pain in right knee; M81.0 Age-related osteoporosis without current pathological fracture
CPT/HCPCS: 97110; 97161

== ENCOUNTER 2022-05-22 10:41 | Outpatient (CLI) | payer MEDICARE, SELFPAY ==
[2022-05-22 18:51] LABS: Basophils Percent Auto 0.4 % (0.2-1.2); Eosinophils Absolute Auto 0.2 K/mm3 (0-0.3); Eosinophils Percent Auto 2.5 % (0-4.4); Hematocrit 42.7 % (37.0-47.0); Hemoglobin 13.5 g/dL (12.0-15.0); Immature Granulocyte Absolute 0.02 K/mm3 (0.00-0.031); Immature Granulocyte Percent A 0.3 % (0-0.5); Lymphocytes Absolute Auto 2.01 K/mm3 (0.9-3.2); Lymphocytes Percent Auto 30.1 % (18.3-44.2); Mean Corpuscular HGB Conc 31.6 g/dl (32-36); Mean Corpuscular Hemoglobin 27.7 pg (26-34); Mean Corpuscular Volume 87.7 fl (80-100); Mean Platelet Volume 9.3 fl (7.4-10.4); Monocytes Absolute Auto 0.4 K/mm3 (0.1-0.6); Monocytes Percent Auto 5.8 % (2.6-8.5); Neutrophils Absolute Auto 4.1 K/mm3 (1.3-6.7); Neutrophils Percent Auto 60.9 % (45.5-73.1); Platelet Count Result 434 k/mm3 (150-375); Red Blood Count 4.87 M/mm3 (4.2-5.4); Red Cell Distribution Width 13.5 % (11.5-14.5); White Blood Count 6.7 K/mm3 (4.5-10.0)
[2022-05-22 19:08] LABS: Alanine Aminotransferase 18 U/L (6-35); Albumin Level 4.5 g/dL (3.5-5.1); Alkaline Phosphatase 72 U/L (38-126); Anion Gap 8 mmol/L (8-16); Aspartate Amino Transferase 20 U/L (14-36); Bilirubin,Total 0.4 mg/dL (0.2-1.3); Blood Urea Nitrogen 16 mg/dL (7-17); Carbon Dioxide 29 mmol/L (22-30); Chloride 102 mmol/L (98-107); Cholesterol 233 mg/dL (0-200); Estimated Glomerular Filt Rate > 60; Glucose 95 mg/dL (65-110); HDL Direct 43 mg/dL; Potassium 4.5 mmol/L (3.4-5.0); Sodium 139 mmol/L (137-145); Triglycerides 132 mg/dL (<150)
[2022-05-22 19:18] LABS: LDL Cholesterol Direct 142 mg/dL
[2022-05-22 20:38] LABS: Vitamin D 25 Hydroxy 43.8 ng/mL
== END 2022-05-22 10:42 | disposition home or self-care (01) ==
LOC: ANHGOSHLAB 10:42
PROVIDERS: PCP Internal Medicine; Visit Provider Nurse Practitioner
DX: E78.5 Hyperlipidemia, unspecified (principal); E56.9 Vitamin deficiency, unspecified; M81.0 Age-related osteoporosis without current pathological fracture
CPT/HCPCS: 36415; 80053; 80061; 82306; 85025

== ENCOUNTER → 2022-10-12 12:02 | Outpatient (CLI) | payer MEDICARE, SELFPAY ==
--- NOTE | ~2022-10-12 | XR_ITS ---
Cervical Spine: AP, lateral, open-mouth views Clinical History: Pain Findings: The normal lordotic curve is maintained. No fracture identified. 2 mm anterolisthesis of C5 over C6 present. There is mild facet arthropathy at C5-C6. The intervertebral disc spaces are well m aintained. Pre-vertebral soft tissues are unremarkable. Impression: 2 mm anterolisthesis of C5 over C6. Mild facet arthropathy at C5-C6. Reviewed, dictated and finalized at [facility]. Impression: 2 mm anterolisthesis of C5 over C6. Mild facet arthropathy at C5-C6.
--- NOTE | ~2022-10-12 | XR_ITS ---
Right Shoulder Technique: AP and scapular Y views were obtained. Clinical History: Pain Findings: No fracture or dislocation is seen. Osseous alignment is anatomic. There is mild AC joint d egenerative change. Glenohumeral joint is intact. Soft tissues are unremarkable. Impression: Mild AC joint degenerative change. Reviewed, dictated and finalized at location . Impression: Mild AC joint degenerative change.
== END ==
PROVIDERS: PCP Nurse Practitioner; Visit Provider Nurse Practitioner
DX: M19.011 Primary osteoarthritis, right shoulder (principal); M43.12 Spondylolisthesis, cervical region; M47.812 Spondylosis without myelopathy or radiculopathy, cervical region
CPT/HCPCS: 72050; 73030

== ENCOUNTER 2023-06-06 10:44 | Outpatient (CLI) | payer MEDICARE, SELFPAY ==
[2023-06-06 13:15] LABS: Basophils Percent Auto 0.6 % (0.2-1.2); Eosinophils Absolute Auto 0.2 K/mm3 (0-0.3); Eosinophils Percent Auto 2.8 % (0-4.4); Hemoglobin 13.3 g/dL (12.0-15.0); Immature Granulocyte Absolute 0.03 K/mm3 (0.00-0.031); Immature Granulocyte Percent A 0.5 % (0-0.5); Lymphocytes Percent Auto 25.1 % (18.3-44.2); Mean Corpuscular HGB Conc 30.2 g/dl (32-36); Mean Corpuscular Hemoglobin 27.7 pg (26-34); Mean Corpuscular Volume 91.7 fl (80-100); Mean Platelet Volume 9.6 fl (7.4-10.4); Monocytes Absolute Auto 0.4 K/mm3 (0.1-0.6); Monocytes Percent Auto 6.6 % (2.6-8.5); Neutrophils Absolute Auto 4.1 K/mm3 (1.3-6.7); Neutrophils Percent Auto 64.4 % (45.5-73.1); Platelet Count Result 370 k/mm3 (150-375); White Blood Count 6.4 K/mm3 (4.5-10.0)
[2023-06-06 13:35] LABS: Alanine Aminotransferase 17 U/L (6-35); Albumin Level 4.3 g/dL (3.5-5.1); Alkaline Phosphatase 65 U/L (38-126); Anion Gap 6 mmol/L (4-12); Aspartate Amino Transferase 37 U/L (14-36); Bilirubin,Total 0.4 mg/dL (0.2-1.3); Blood Urea Nitrogen 15 mg/dL (7-17); Calcium 9.3 mg/dL (8.4-10.2); Carbon Dioxide 30 mmol/L (22-30); Chloride 102 mmol/L (98-107); Cholesterol 219 mg/dL (0-200); Estimated Glomerular Filt Rate > 60; Glucose 96 mg/dL (65-110); HDL Direct 50 mg/dL; Potassium 4.3 mmol/L (3.4-5.0); Sodium 138 mmol/L (137-145); Triglycerides 231 mg/dL (<150)
[2023-06-06 13:46] LABS: LDL Cholesterol Direct 135 mg/dL
[2023-06-06 14:13] LABS: Vitamin D 25 Hydroxy 30.7 ng/mL
== END 2023-06-06 10:45 | disposition home or self-care (01) ==
LOC: ANHGOSHLAB 10:45
PROVIDERS: PCP Nurse Practitioner; Visit Provider Nurse Practitioner
DX: M81.0 Age-related osteoporosis without current pathological fracture (principal); E78.5 Hyperlipidemia, unspecified
CPT/HCPCS: 36415; 80053; 80061; 82306; 85025

== ENCOUNTER 2023-08-22 09:27 | Outpatient (CLI) | payer MEDICARE, SELFPAY ==
--- NOTE | ~2023-08-22 | DEXA_ITS ---
Bone Density Report Name: JENISE VELASQUEZ Age: 68 Sex: Female Ethnicity: White Date of : 1955 Indication: osteopenia; parental hip fracture; history of glucocorticoids; asthma or emphysema; Referring Provider: PATI TREVINO Study: Bone densitometry was performed. Exam Date: August 22, 2023 Accession number: [id number] Bone Density: Region BMD T-score Z-score Classification AP Spine(L1-L4) 0.797 -2.3 -0.2 Osteopenia Femoral Neck (Left) 0.664 -1.7 0.1 Osteopenia Total Hip (Left) 0.880 -0.5 0.9 Normal Femoral Neck (Right) 0.650 -1.8 0.0 Osteopenia Total Hip (Right) 0.858 -0.7 0.8 Normal Total Hip Mean 0.869 -0.6 0.9 Normal World Health Organization criteria for BMD impression classify patients as: Normal (T-score at or above -1.0), Osteopenia (T-score between -1.0 and -2.5), or Osteoporosis (T-score at or below -2.5). 10-year Fracture Risk(1): Major Osteoporotic Fracture 25% Hip Fracture 5.2% Reported Risk Factors: [place] (), Neck BMD=0.650, BMI=32.0, parental fracture, glucocorticoids (1) FRAX(R) Version 3.08. Fracture probability calculated for an untreated patient. Fracture probability may be lower if the patient has received treatment. Previous Exams: Region Exam Age BMD T-score BMD Change BMD Change Date g/cm2 vs Baseline vs Previous AP Spine (L1-L4) 08/22/2023 68 0.797 -2.3 0.049 (6.5%)* -0.004 (-0.6%) 12/24/2018 63 0.802 -2.2 0.053 (7.1%)* 0.053 (7.1%)* 12/05/2016 61 0.749 -2.7 Total Hip(Left) 08/22/2023 68 0.880 -0.5 0.081 (10.2%)* 0.124 (16.4%)* 01/20/2021 65 0.756 -1.5 -0.043 (-5.3%) -0.068 (-8.3%) 12/24/2018 63 0.824 -1.0 0.026 (3.2%) 0.026 (3.2%) 12/05/2016 61 0.799 -1.2 Total Hip(Right) 08/22/2023 68 0.858 -0.7 0.035 (4.3%)* 0.086 (11.2%)* 01/20/2021 65 0.771 -1.4 -0.051 (-6.2%) -0.074 (-8.7%) 12/24/2018 63 0.845 -0.8 0.023 (2.8%) 0.023 (2.8%) 12/05/2016 61 0.822 -1.0 *Denotes significance at 95% confidence level, LSC for AP Spine = 0.022 g/cm2, LSC for Total Hip = 0.027 g/cm2 Clinical Information Provided by Patient: Parent has had a hip fracture Has taken Glucocorticoids Has used the following medications: Fosamax (i.e. alendronate), Vitamin D, Calcium Has the following medical conditions: Asthma or Emphysema, COPD Patient maximum height was 62.25 Menopause Age: 45 Drinks caffeinated beverages Onset of menses at age 12 Number of children 2
== END 2023-08-22 09:28 | disposition home or self-care (01) ==
LOC: ANHIMG 09:28
PROVIDERS: PCP Nurse Practitioner; Visit Provider Nurse Practitioner
DX: M81.0 Age-related osteoporosis without current pathological fracture (principal); Z78.0 Asymptomatic menopausal state; M85.88 Other specified disorders of bone density and structure, other site; M85.852 Other specified disorders of bone density and structure, left thigh; M85.851 Other specified disorders of bone density and structure, right thigh
CPT/HCPCS: 77080

== ENCOUNTER 2024-07-29 10:40 | Outpatient (CLI) | payer MEDICARE, SELFPAY ==
--- OUTSIDE RECORDS SUMMARY | 2024-07-29 10:47 | XMS_ITS | Data Portability ---
Author Organization [facility] Address [address] [facility] [place] [address] Assessment Encounter Date Assessment Date Assessment LastModified by Organization Details LastModified Time 03/11/2014 03/11/2014 Patient feels well controlled on current dose and will continue on this dose, plan to possibly wean off medication when patient feels able to cope and handle stressors-margo lopez graduated with a Masters degree and looking for a job, patient agrees to work on healthy diet and to get more exercise, she agrees to set well exam once she has insurance Not available 03/11/2014 11:16:52 Plan of Treatment Reminders Order Date Submit Date Provider Last Modified By Organization Details Last Modified Time Details Appointments None recorded. Lab None recorded. Referral None recorded. Procedures None recorded. Surgeries None recorded. Imaging None recorded. Medication Orders lovastatin 10 mg tablet [address] [facility] [place], [address], 5 11:16:52 sertraline 50 mg tablet [address] [facility] [place], [address], 5 11:16:51 Patient TargetsNo targets recorded. Patient Instructions Encounter Date Encounter Id Patient Instructions Last Modified By Organization Details Last Modified Time 03/11/2014 [id number] Continue on current medications, make diet changes more lean meats, fruits and vegetables and whole wheat, exercise 30 minutes 4-5 times a week, call office if notice mood changes and medication not as effective, set well exam in the future once you have insurance Not available 03/11/2014 11:16:52 discussed depression and medications and possibly weaning off medications if patient remains stable and is comfortable with doing so, discussed healthy diet and exercise for cholesterol levels and to prevent other chronic issues, discussed need for well exam once patient has insurance Not available 03/11/2014 11:16:52 Reason for Referral None Reported. Problems Name Problem SNOMED Code Status Onset Date Resolution Date Notes Provider Name and Address Organization Details Recorded Time Depressive disorder 54577090 Active DINO Holley Attn: Milena montiel,[address] [facility], [place], [address], [facility] 5 11:16:51 Hypercholestero lemia 87796847 Active DINO Holley Attn: Accountin g,[address] [facility], [place], [address], [facility] 5 11:16:51 Problem Notes None recorded. Procedures Surgical History Date Name Laterality Status Provider Name and Address Organization Details Recorded Time Caesarean Section completed Leticia franco MA [facility] 03/11/2014 10:56:23 Tubal Ligation completed Leticia olivia MA [facility] 03/11/2014 10:56:23 Tonsillectomy completed Leticia Laureano MA [facility] 03/11/2014 10:56:23 Imaging Results None recorded. Procedure Notes None recorded. Medical Equipment None Reported. Allergies Allergen ID Allergen Name Allergen Category Reaction Reaction Severity Criticality Documentation Date Start Date Code Code System Note Provider Name and Address Organization Details Recorded Time 71317 Wellbutri n medicatio n Not available Not available Not available 03/11/2014 26528 RxNorm Leticia Laureano MA null, [place] - [facility] 5 10:56:24 Medications Name Sig Start Date Stop Date Status Note LastModified by Organization Details LastModified Time lovastatin 10 mg tablet TAKE ONE TABLET BY MOUTH EVERY DAY active Not Available Not Available No t Available sertraline 50 mg tablet Take 1 tablet every day by oral route. 015 active Not Available Not Available Not Avai lable Vitals Date Recorded Respiratory rate Body weight Heart rate Body mass index (BMI) Body height Body temperature Systolic blood pressure Diastolic blood pressure Provider Name and Address Organization Details Last Updated DateTime 5 16 /min 87877.4 74 g 72 /min 35.7 kg/m2 159.385 cm 97.7 [degF] 110 mm[Hg] 80 mm[Hg] Leticia Laureano [place] [facility] 5 10:56:23 Social History Question Answer Notes LastModified by Organizat ion Details LastModified Time Tobacco Smoking Status Former Smoker Leticiane Laureano MA null, [place] - [facility] 03/11/2014 10:56:23 Do You Have An Advance Directive? No Information not available 03/11/2014 What Is Your Level Of Caffeine Consumption? Moderate Information not available 03/11/2014 Hard Of Hearing Or Deaf In One Or Both Ears? No Information not available 03/11/2014 Legally Blind In One Or Both Eyes? No Information not available 03/11/2014 Marital Status Informatio n not available 03/11/2014 Performs Monthly Self-breast Exam? No Information not available 03/11/2014 Seat Belts Used Routinely Yes Information not available 03/11/2014 Smoke Alarm In Home Yes Information not available 03/11/2014 Do You Use Sunscreen Routinely? No Information not available 03/11/2014 Sex: Unknown Functional Status Question Answer Note LastModified by Organizat ion Details LastModified Time What is your level of alcohol consumption? Occasional Information not available 03/11/2014 Mental Status None recorded. Family History Relationship Description Onset Age of this Age Resolved Age Notes LastModified by Organization Details LastModified Time Unspecified Relation Hypertensive disorder Not available 2014 10:56:23 Mother Hypertensive disorder Not available 2014 10:56:23 Medical History Condition Response Anxiety Disorder Y Depression Y High Cholesterol Y Gynecological HistoryNo gynecological history recorded. Obstetrics History GPAL:G 0 P 0 0 0 0 Immunizations Vaccine Type Date Status Note Provider Nam cy and Address Organization Details Recorded Time Td (adult) 08/10/2004 completed DINO Holley Attn: Accounting,[address] [facility], [place], [address], [facility] 03/11/2014 11:17:47 Past Encounters Encounter ID Performer Location Encounter Start Date Encounter Closed Date Diagnosis/Indication Diagnosis SNOMED-CT Code Diagnosis ICD10 Code Diagnosis Note [id number] MD Cleo Gregg [facility] ([address]) [address] [facility] [address] [place] [address] 03/11/2014 10:34:13 03/11/2014 14:49:05 Depressive disorder [id number] [facility] [id number] Health Concerns Section Related Observation LastModified by Organization Detai ls LastModified Time None Recorded Concern Status LastModified by Organization Details LastModified Time None Recorded Advance Directives Directive N: Payers Encounter Date Sequence Insurance Name Policy Number Policy Castelan Covered Member ID Castelan Member ID Guarantor Name 03/11/2014 SLIDING FEE SCHEDULE - DISCOUNT June Candido OBGyn Episode No OBEpisode recorded.
[2024-07-29 19:32] LABS: Basophils Percent Auto 0.6 % (0.2-1.2); Eosinophils Absolute Auto 0.1 K/mm3 (0-0.3); Eosinophils Percent Auto 1.9 % (0-4.4); Immature Granulocyte Absolute 0.02 K/mm3 (0.00-0.031); Immature Granulocyte Percent A 0.3 % (0-0.5); Lymphocytes Absolute Auto 1.55 K/mm3 (0.9-3.2); Mean Corpuscular Hemoglobin 28.1 pg (26-34); Mean Corpuscular Volume 90.9 fl (80-100); Mean Platelet Volume 9.4 fl (7.4-10.4); Monocytes Absolute Auto 0.5 K/mm3 (0.1-0.6); Monocytes Percent Auto 7.3 % (2.6-8.5); Neutrophils Percent Auto 64.9 % (45.5-73.1); Platelet Count Result 376 k/mm3 (150-375); Red Blood Count 4.62 M/mm3 (4.2-5.4); Red Cell Distribution Width 13.9 % (11.5-14.5); White Blood Count 6.2 K/mm3 (4.5-10.0)
[2024-07-29 20:13] LABS: Alanine Aminotransferase 17 U/L (6-35); Albumin Level 4.3 g/dL (3.5-5.1); Alkaline Phosphatase 61 U/L (38-126); Anion Gap 5 mmol/L (4-12); Aspartate Amino Transferase 25 U/L (14-36); Bilirubin,Total 0.4 mg/dL (0.2-1.3); Blood Urea Nitrogen 16 mg/dL (7-17); Calcium 9.7 mg/dL (8.4-10.2); Carbon Dioxide 33 mmol/L (22-30); Chloride 101 mmol/L (98-107); Cholesterol 257 mg/dL (0-200); Estimated Glomerular Filt Rate > 60; Glucose 98 mg/dL (65-110); HDL Direct 59 mg/dL; Potassium 4.7 mmol/L (3.4-5.0); Sodium 139 mmol/L (137-145); Triglycerides 169 mg/dL (<150)
[2024-07-29 20:24] LABS: LDL Cholesterol Direct 147 mg/dL
[2024-07-29 20:31] LABS: Vitamin D 25 Hydroxy 30.4 ng/mL
== END 2024-07-29 10:41 | disposition home or self-care (01) ==
LOC: ANHGOSHLAB 10:41
PROVIDERS: PCP Nurse Practitioner; Visit Provider Nurse Practitioner
DX: E78.5 Hyperlipidemia, unspecified (principal); E55.9 Vitamin D deficiency, unspecified
CPT/HCPCS: 36415; 80053; 80061; 82306; 85025

== ENCOUNTER 2025-01-06 13:33 | Outpatient (CLI) | payer MEDICARE, SELFPAY ==
--- NOTE | ~2025-01-06 | XR_ITS ---
EXAMINATION: XR chest 2V, 01/06/2025 13:48 CARDIAC CATHETERIZATION TECHNICIAN HISTORY: R06.02 - Shortness of breath, COPD, PAST SMOKER COMPARISON: No comparisons available. Technique: 2 views obtained. Findings: The lungs are clear, no effusion. No pneumothorax. Heart is normal size. Mediastinal and hilar contours are within normal limits. Bony thorax no acute abnormality. Impression: No acute cardiopulmonary abnormality. Reviewed, dictated and finalized at location P. IAC CATHETERIZATION TECHNICIAN Impression: No acute cardiopulmonary abnormality.
--- OUTSIDE RECORDS SUMMARY | 2025-01-07 12:46 | XMS_ITS | Clinical Summary ---
Author Organization [facility] Address [address] [place] [id number] Care Team Providers Care Credit Collection Associate Name Role Phone Myles ARAUJO MD, James L Primary Care Provider Social History Tobacco Use Types Packs/Day Years Used Date Smoking Tobacco: Never Assessed Comments Unknown Sex and Gender Information Value Date Recorded Sex Assigned at Not on file Legal Sex Female 7:54 PM CDT Gender Identity Not on file Sexual Orientation Not on file Plan of Treatment Health Maintenance Due Date Last Done Comments Colorectal Cancer Screening Colonoscopy (10 Years) 1954 Hepatitis C 1972 DTaP, Tdap and Td Vaccines ( 1 - Tdap) 1973 Mammogram Screening 1994 Pneumococcal Vaccine: 50+ Ye ars (1 of 1 - PCV) 2004 Zoster Vaccines (1 of 2) 2004 Dexa Scan (General) 06/25/2019 COVID-19 Vaccine ( - 2024-2 6 season) 2024 Influenza Adult (#1) 2024 RSV Immunization or 60+ Years (1 - 1-dose 75+ series) 2029 Hepatitis A Vaccines Aged Out No long er eligible based on patient's age to complete this topic Meningococcal B Vaccine Aged Out No l onger eligible based on patient's age to complete this topic Meningococcal Vaccine Aged Out No milla miguel ángel eligible based on patient's age to complete this topic RSV Immunizations Under 20 Months Aged Out No longer eligible based on patient's age to complete this topic Care Teams Credit Collection Associate Relationship Specialty Start Date End Date Dominick Bueno II, MD PCP - General 10/15/14
== END 2025-01-06 13:34 | disposition home or self-care (01) ==
PROVIDERS: PCP Nurse Practitioner; Visit Provider Clinical Nurse Specialist
DX: R06.02 Shortness of breath (principal)
CPT/HCPCS: 71046

== ENCOUNTER 2025-01-07 10:01 | Outpatient (CLI) | payer MEDICARE, SELFPAY ==
--- NOTE | ~2025-01-07 | XR_ITS ---
EXAM/PROCEDURE: XR lumbar spine 2-3V HISTORY: M54.16 - Radiculopathy, lumbar region, X 2 MONTHS COMPARISON: None available. TECHNIQUE: Cervical spine plain films FINDINGS: Mild degenerative changes throughout the cervical spine disc spaces uncovertebral joints and pedicles noted most advanced at the C5-6 and C6-7 levels. Slight anterolisthesis of C5 on C6 noted. No fracture or aggressive bony/soft tissue process seen. IMPRESSION: No acute findings. Multilevel degenerative changes most advanced in the lower cervical spine. Consider correlation with MRI for optimal sensitivity/evaluation. Reviewed, dictated and finalized at location A. LEGAL SECRETARY IMPRESSION: No acute findings. Multilevel degenerative changes most advanced in the lower c ervical spine. Consider correlation with MRI for optimal sensitivity/evaluation .
--- OUTSIDE RECORDS SUMMARY | 2025-01-07 18:21 | XMS_ITS | Clinical Summary ---
Author Organization [facility] Address [address] [place] [address] Care Team Providers Care Biofuels Operations Manager Name Role Phone Myles ARAUJO MD, James [...] age to complete this topic Care Teams Biofuels Operations Manager Relationship Specialty Start Date End Date Dominick Bueno II, MD PCP - General 10/15/14
== END 2025-01-07 10:02 | disposition home or self-care (01) ==
PROVIDERS: PCP Nurse Practitioner; Visit Provider Clinical Nurse Specialist
DX: M54.16 Radiculopathy, lumbar region (principal)
CPT/HCPCS: 72100

== ENCOUNTER 2025-01-29 10:11 | Outpatient (CLI) | payer MEDICARE, SELFPAY ==
--- NOTE | ~2025-01-29 | MR_ITS ---
EXAMINATION: MR lumbar spine wo lisa, 01/29/2025 10:50 GAS STATION OPERATOR HISTORY: Lumbar radicular pain. left-sided pain (mid buttock to top COMPARISON: Comparison 01/07/2025 TECHNIQUE: Multi-planar multi-sequence images were obtained of the lumbar spine without contrast per protocol. FINDINGS: The vertebral heights are intact. Minimal grade 1 anterolisthesis of L4 on L5, no fracture is identified. Marrow signal is appropriate. There is no abnormal signal within the posterior elements. Posterior alignment appears intact Conus terminates at T12-L1, there is no abnormal signal within the cord Moderate loss of disc height throughout with disc desiccation and endplate degenerative changes most marked at L3-4 and L4-5 The soft tissues appear unremarkable L5-S1: Circumferential bulging of the disc, mild ligamentum flavum and facet hypertrophy. Moderate bilateral foramina and lateral recess stenosis, no canal stenosis. L4-5: Circumferential bulging of the disc with ligamentum flavum and facet hypertrophy. Moderate to severe bilateral foramina, lateral recess and canal stenosis. L3-4: Circumferential bulging of the disc with ligamentum flavum and facet hypertrophy., Moderate bilateral foramina, lateral recess and mild to moderate canal stenosis. L2-L3: Circumferential bulging of the disc with mild bilateral foramina stenosis. L1-L2: No canal or foraminal stenosis There is significant artifact noted in the L5-S1 spinal canal etiology unclear, underlying occult lesion is not excluded IMPRESSION: 1. Degenerative changes detailed above 2. Artifact within the spinal canal at L5-S1 detailed above, an occult lesion is not excluded. Repeat exam contrast is recommended to assess Reviewed, dictated and finalized at location P. STATION OPERATOR IMPRESSION: 1. Degenerative changes detailed above 2. Artifact within the spinal canal at L5-S1 detailed above, an occult lesion i s not excluded. Repeat exam contrast is recommended to assess
== END 2025-01-29 10:12 | disposition home or self-care (01) ==
LOC: MICIMG 10:12
PROVIDERS: PCP Nurse Practitioner; Visit Provider Nurse Practitioner Family
DX: M54.16 Radiculopathy, lumbar region (principal); M51.369 Other intervertebral disc degeneration, lumbar region without mention of lumbar back pain or lower extremity pain
CPT/HCPCS: 72148